=== PATIENT | female | born 1985 | race Caucasian/White ===

== ENCOUNTER 2016-04-03 02:20 | Emergency (ER) | payer MEDICAID | END 2016-04-03 03:17 | disposition home or self-care (01) | LOC: D.ER 02:20 | DX: S80.211A Abrasion, right knee, initial encounter (principal); W19.XXXA Unspecified fall, initial encounter; Y93.89 Activity, other specified; Y92.019 Unspecified place in single-family (private) house as the place of occurrence of the external cause; J45.909 Unspecified asthma, uncomplicated ==

== ENCOUNTER 2016-09-28 11:58 | Emergency (ER) | payer MEDICAID | END 2016-09-28 13:00 | disposition left against medical advice (07) | LOC: D.ER 11:58 | DX: M79.642 Pain in left hand (principal) ==

== ENCOUNTER 2016-11-09 12:16 | Emergency (ER) | payer MEDICAID ==
[2016-11-09 13:16] LABS: BASOPHILS 0.4 % (0-2); EOSINOPHILS 1.9 % (0-7); HEMATOCRIT 45.8 % (36.0-48.0); IMMATURE GRANULOCYTES 0.1 % (0-5); MCH 30.1 pg (26.0-34.0); MCHC 32.8 g/dL (31.0-37.0); MEAN PLATELET VOLUME 11.8 fL (7.4-10.4); MONOCYTES 3.9 % (2-11); NEUTROPHILS 69.7 % (40-80); PLATELET COUNT 185 10x3/uL (130-400); RBC 4.98 10x6/uL (4.00-5.40); RDW 12.4 % (11.5-14.5); WBC 9.2 10x3/uL (4.8-10.8)
[2016-11-09 13:30] LABS: HCG SERUM NEGATIVE (NEGATIVE)
[2016-11-09 14:49] LABS: APPEARANCE CLEAR (CLEAR); BILIRUBIN NEGATIVE (NEGATIVE); COLOR YELLOW (YELLOW); GLUCOSE NEGATIVE (NEGATIVE); KETONE NEGATIVE (NEGATIVE); NITRITE NEGATIVE (NEGATIVE); PROTEIN TRACE mg/dL (NEGATIVE); UROBILINOGEN NORMAL (NORMAL)
[2016-11-09 14:50] LABS: BACTERIA FEW /hpf (NONE SEEN); EPITHELIAL CELLS 0-5 /hpf (0-5); RED CELLS - URINE 0-5 /hpf (0-5); WHITE CELLS - URINE 0-5 /hpf (0-5)
[2016-11-09 16:16] LABS: ALBUMIN 3.8 g/dL (3.4-5.0); ALKALINE PHOSPHATASE 63 U/L (46-116); ALT (SGPT) 21 U/L (10-68); CALC OSMOLALITY 275 mosm/kg (275-300); CARBON DIOXIDE 28.2 mmol/L (21.0-32.0); CHLORIDE - SERUM 104 mmol/L (98-107); CREATININE - SERUM 0.8 mg/dL (0.6-1.3); GLUCOSE 95 mg/dL (74-106); POTASSIUM - SERUM 4.3 mmol/L (3.5-5.1); PROTEIN - SERUM 7.5 g/dL (6.4-8.2); SODIUM 138 mmol/L (136-145); UREA NITROGEN 12 mg/dL (7-18); eGFR NON AFRICAN AMERICAN 89 mL/min (90-120)
[2017-01-27] MEDS ORDERED: PROVENTIL HFA6.7 GM INH (15:24)
[2017-01-28 07:57] VITALS: BMI 31.0
== END 2016-11-09 18:21 | disposition home or self-care (01) ==
LOC: D.ER 12:16
PROVIDERS: Family Medicine; Nurse Practitioner Family
DX: K80.50 Calculus of bile duct without cholangitis or cholecystitis without obstruction (principal); N39.0 Urinary tract infection, site not specified; F17.200 Nicotine dependence, unspecified, uncomplicated

== ENCOUNTER 2016-11-26 09:01 | Emergency (ER) | payer MEDICAID ==
[2016-11-26 09:49] LABS: AMYLASE - SERUM 54 U/L (25-115); LIPASE 248 U/L (73-393)
[2016-11-26 09:54] LABS: ALBUMIN 3.4 g/dL (3.4-5.0); ALKALINE PHOSPHATASE 57 U/L (46-116); ALT (SGPT) 18 U/L (10-68); CALC OSMOLALITY 278 mosm/kg (275-300); CALCIUM 8.9 mg/dL (8.5-10.1); CARBON DIOXIDE 23.3 mmol/L (21.0-32.0); CHLORIDE - SERUM 104 mmol/L (98-107); CREATININE - SERUM 0.8 mg/dL (0.6-1.3); GLUCOSE 130 mg/dL (74-106); POTASSIUM - SERUM 4.1 mmol/L (3.5-5.1); PROTEIN - SERUM 6.9 g/dL (6.4-8.2); SODIUM 137 mmol/L (136-145); UREA NITROGEN 21 mg/dL (7-18); eGFR NON AFRICAN AMERICAN 89 mL/min (90-120)
[2016-11-26 10:00] LABS: HCG SERUM NEGATIVE (NEGATIVE)
[2016-11-26 10:24] LABS: BASOPHILS 0.2 % (0-2); EOSINOPHILS 1.6 % (0-7); HEMATOCRIT 45.1 % (36.0-48.0); HEMOGLOBIN 14.9 g/dL (12-16); IMMATURE GRANULOCYTES 0.2 % (0-5); LYMPHOCYTES 19.7 % (15-50); MCH 30.2 pg (26.0-34.0); MCV 91.3 fL (80.0-100.0); MEAN PLATELET VOLUME 12.5 fL (7.4-10.4); MONOCYTES 4.7 % (2-11); NEUTROPHILS 73.6 % (40-80); PLATELET COUNT 213 10x3/uL (130-400); RBC 4.94 10x6/uL (4.00-5.40); RDW 12.6 % (11.5-14.5); WBC 14.7 10x3/uL (4.8-10.8)
[2016-11-26 10:24] LABS: APPEARANCE CLOUDY (CLEAR); BILIRUBIN NEGATIVE (NEGATIVE); COLOR YELLOW (YELLOW); GLUCOSE NEGATIVE (NEGATIVE); KETONE NEGATIVE (NEGATIVE); NITRITE NEGATIVE (NEGATIVE); PROTEIN NEGATIVE (NEGATIVE); SPECIFIC GRAVITY 1.015 (1.005-1.020); UROBILINOGEN NORMAL (NORMAL); WHITE CELLS - URINE 0-5 /hpf (0-5)
[2016-11-26 10:27] LABS: BACTERIA MODERATE /hpf (NONE SEEN); MUCUS <1+ /lpf (NONE SEEN)
[2017-01-27] MEDS ORDERED: PROVENTIL HFA6.7 GM INH (15:24)
[2017-01-28 07:57] VITALS: BMI 31.0
== END 2016-11-26 13:30 | disposition home or self-care (01) ==
LOC: D.ER 09:01
PROVIDERS: Family Medicine
DX: K80.50 Calculus of bile duct without cholangitis or cholecystitis without obstruction (principal); N76.0 Acute vaginitis; B96.89 Other specified bacterial agents as the cause of diseases classified elsewhere; F17.200 Nicotine dependence, unspecified, uncomplicated

== ENCOUNTER 2017-01-28 06:57 | Day surgery (SDC) | payer MEDICAID ==
[~2017-01-28] VITALS: Ht 177.8 cm; Wt 98.0 kg
[~2017-01-28 06:57] MED LIST: PROVENTIL HFA6.7 GM INH
[2017-01-28 07:45] LABS: BASOPHILS 0.2 % (0-2); EOSINOPHILS 2.3 % (0-7); HEMATOCRIT 43.3 % (36.0-48.0); HEMOGLOBIN 14.3 g/dL (12-16); IMMATURE GRANULOCYTES 0.1 % (0-5); LYMPHOCYTES 20.9 % (15-50); MCH 30.3 pg (26.0-34.0); MCV 91.7 fL (80.0-100.0); MEAN PLATELET VOLUME 11.3 fL (7.4-10.4); MONOCYTES 5.6 % (2-11); NEUTROPHILS 70.9 % (40-80); PLATELET COUNT 193 10x3/uL (130-400); RBC 4.72 10x6/uL (4.00-5.40); RDW 13.1 % (11.5-14.5); WBC 8.6 10x3/uL (4.8-10.8)
[2017-01-28 07:55] LABS: CALC OSMOLALITY 275 mosm/kg (275-300); CALCIUM 8.6 mg/dL (8.5-10.1); CARBON DIOXIDE 26.4 mmol/L (21.0-32.0); CHLORIDE - SERUM 104 mmol/L (98-107); CREATININE - SERUM 0.7 mg/dL (0.6-1.3); GLUCOSE 106 mg/dL (74-106); POTASSIUM - SERUM 3.8 mmol/L (3.5-5.1); SODIUM 138 mmol/L (136-145); UREA NITROGEN 13 mg/dL (7-18); eGFR NON AFRICAN AMERICAN > 90 mL/min (90-120)
[2017-01-28 07:57] VITALS: BP 117/67; Ht 177.8 cm; Wt 98.0 kg
[2017-01-28 08:27] LABS: HCG URINE NEGATIVE (NEGATIVE)
--- NOTE | 2017-01-28 10:26 | NUR ---
RECEIVED PT FROM OR, AIRWAY IN PLACE, RE[ORT FROM Lisa ulloa.
[2017-01-28] MEDS ORDERED: HYDROCODONE-APA1 TAB PO (11:39)
--- NOTE | 2017-02-04 08:01 | OP ---
PATIENT NAME: GUS QUIROS MEDICAL RECORD: [id number] :87 LOCATION:[facility] ADMISSION DATE: SURGEON: HAWK NAIK MD DATE OF OPERATION: 01/28/2017 PREOPERATIVE DIAGNOSES: 1. Umbilical hernia. 2. Gallstones. POSTOPERATIVE DIAGNOSES: 1. Umbilical hernia. 2. Gallstones. PROCEDURES: 1. Laparoscopic cholecystectomy. 2. Umbilical hernia repair without mesh. SURGEON: Hawk Naik MD REPORT OF PROCEDURE: The patient's abdomen was prepped and draped in sterile fashion. A semicircular incision was made on the inferior aspect of the umbilicus. We then dissected down through the subcutaneous tissue using camera through the hernia sac at the umbilical stalk. The hernia sac was dissected off to the fascia. The fascial defect was less than a centimeter in greatest diameter and had some fatty tissue within it. We extended this incision superiorly, 0 Vicryls were placed on the fascia bilaterally. I bluntly entered the abdominal cavity and then placed a 12-mm Aria port. Under direct visualization, a 5-mm trocar was placed in the epigastrium and 2 more 5-mm trocars were placed in the right subcostal region. The gallbladder was grasped and elevated. There is a lot of inflammatory adhesions present on it and these were teased down carefully with blunt dissection. The cystic artery and cystic duct were dissected free and these were clipped proximally and distally and ligated in standard fashion. The gallbladder was then taken off the liver bed using electrocautery and placed in the right upper quadrant. Any bleeding from the liver bed was then treated with electrocautery. At this point, the ports and insufflation were then removed and the gallbladder was taken out through the umbilicus. The umbilical fascia was then closed with interrupted 0 Prolenes times 4 including the known hernia defect. At this point, the umbilicus was tacked down with an interrupted 3-0 Vicryl and the subcutaneous tissues were reapproximated with interrupted 3-0 Vicryls. The wounds were then infused with a total of 10 mL of 0.25% Marcaine plain. The skin incisions were then closed with subcutaneous 5-0 Monocryl. COMPLICATIONS: None. CONDITION: Stable. ANESTHESIA: General endotracheal and local. BLOOD LOSS: Minimal. TRANSINT:[id number] Voice Confirmation ID: [id number] DOCUMENT ID: [id number] OPERATIVE REPORT [id number] GUS QUIROS CHRISTIAN MD at 0801 CC: [id number] DICTATION DATE: 01/28/17 1013 [employer] TEACHER: 01/28/17 1039 [facility] 01/28/17 [place] [id number] [place] [id number]
== END 2017-01-28 12:20 | disposition home or self-care (01) ==
LOC: D.OPS 06:57 → D.PAN 09:00 → D.OPS 09:00
PROVIDERS: Anesthesiology; Surgery
DX: K42.9 Umbilical hernia without obstruction or gangrene (principal); K80.80 Other cholelithiasis without obstruction; F17.200 Nicotine dependence, unspecified, uncomplicated; K21.9 Gastro-esophageal reflux disease without esophagitis; Z01.812 Encounter for preprocedural laboratory examination

== ENCOUNTER 2017-01-29 14:02 | Emergency (ER) | payer MEDICAID ==
[2017-01-28 07:57] VITALS: BMI 31.0
[~2017-01-29 14:02] MED LIST changes: +HYDROCODONE-APA1 TAB PO
== END 2017-01-29 15:50 | disposition home or self-care (01) ==
LOC: D.ER 14:02
DX: G89.18 Other acute postprocedural pain (principal); F17.200 Nicotine dependence, unspecified, uncomplicated

== ENCOUNTER 2017-02-07 21:57 | Emergency (ER) | payer MEDICAID ==
[2017-01-28 07:57] VITALS: BMI 31.0
== END 2017-02-07 23:10 | disposition home or self-care (01) ==
LOC: D.ER 21:57
DX: S83.92XA Sprain of unspecified site of left knee, initial encounter (principal); W19.XXXA Unspecified fall, initial encounter; Y93.89 Activity, other specified; Y92.019 Unspecified place in single-family (private) house as the place of occurrence of the external cause; F17.200 Nicotine dependence, unspecified, uncomplicated

== ENCOUNTER 2017-05-27 12:14 | Emergency (ER) | payer MEDICAID ==
[2017-01-28 07:57] VITALS: BMI 31.0
== END 2017-05-27 14:00 | disposition home or self-care (01) ==
LOC: D.ER 12:14
DX: S39.012A Strain of muscle, fascia and tendon of lower back, initial encounter (principal); X50.0XXA Overexertion from strenuous movement or load, initial encounter; Y93.89 Activity, other specified; Y92.019 Unspecified place in single-family (private) house as the place of occurrence of the external cause; M54.31 Sciatica, right side

== ENCOUNTER 2017-06-11 08:57 | Emergency (ER) | payer MEDICAID ==
[2017-01-28 07:57] VITALS: BMI 31.0
[2017-06-11 09:36] LABS: BASOPHILS 0.2 % (0-2); EOSINOPHILS 2.2 % (0-7); HEMATOCRIT 44.3 % (36.0-48.0); IMMATURE GRANULOCYTES 0.2 % (0-5); LYMPHOCYTES 23.9 % (15-50); MCH 31.7 pg (26.0-34.0); MCHC 33.9 g/dL (31.0-37.0); MCV 93.7 fL (80.0-100.0); MEAN PLATELET VOLUME 11.6 fL (7.4-10.4); MONOCYTES 5.3 % (2-11); NEUTROPHILS 68.2 % (40-80); PLATELET COUNT 220 10x3/uL (130-400); RBC 4.73 10x6/uL (4.00-5.40); RDW 12.9 % (11.5-14.5); WBC 9.1 10x3/uL (4.8-10.8)
[2017-06-11 09:47] LABS: HCG SERUM POSITIVE (NEGATIVE)
== END 2017-06-11 12:35 | disposition home or self-care (01) ==
LOC: D.ER 08:57
PROVIDERS: Emergency Medicine
DX: O03.9 Complete or unspecified spontaneous abortion without complication (principal); F17.200 Nicotine dependence, unspecified, uncomplicated

== ENCOUNTER 2017-08-08 05:25 | Emergency (ER) | payer MEDICAID ==
[~2017-08-08] VITALS: Ht 177.8 cm; Wt 75.5 kg
[2017-08-08 05:31] VITALS: Ht 177.8 cm; Wt 75.5 kg
[2017-08-08] MEDS ORDERED: KEFLEX500 MG PO (06:35)
[2017-08-08 07:16] VITALS: BP 120/69
== END 2017-08-08 07:17 | disposition home or self-care (01) ==
LOC: D.ER 05:25
DX: S91.101A Unspecified open wound of right great toe without damage to nail, initial encounter (principal); W26.8XXA Contact with other sharp object(s), not elsewhere classified, initial encounter; Y93.89 Activity, other specified; Y92.019 Unspecified place in single-family (private) house as the place of occurrence of the external cause; F17.200 Nicotine dependence, unspecified, uncomplicated

== ENCOUNTER 2017-08-21 14:56 | Emergency (ER) | payer MEDICAID ==
[2017-08-08 05:31] VITALS: BMI 23.8
[~2017-08-21 14:56] MED LIST changes: +KEFLEX500 MG PO
== END 2017-08-21 15:31 | disposition left against medical advice (07) ==
LOC: D.ER 14:56
DX: K64.9 Unspecified hemorrhoids (principal)

== ENCOUNTER 2018-07-25 12:12 | Emergency (ER) | payer SELFPAY ==
[~2018-07-25] VITALS: Ht 177.8 cm; Wt 104.5 kg
[2018-07-25 12:26] VITALS: BP 117/87; Ht 177.8 cm; Wt 104.5 kg
[2018-07-25 13:14] LABS: BASOPHILS 0.3 % (0-2); HEMATOCRIT 41.7 % (36.0-48.0); HEMOGLOBIN 13.5 g/dL (12-16); IMMATURE GRANULOCYTES 0.3 % (0-5); LYMPHOCYTES 27.7 % (15-50); MCH 30.9 pg (26.0-34.0); MCHC 32.4 g/dL (31.0-37.0); MCV 95.4 fL (80.0-100.0); MEAN PLATELET VOLUME 11.6 fL (7.4-10.4); MONOCYTES 5.7 % (2-11); RBC 4.37 10x6/uL (4.00-5.40); RDW 12.9 % (11.5-14.5); WBC 7.7 10x3/uL (4.8-10.8)
[2018-07-25 13:29] LABS: APTT 26.2 SECONDS (22.8-39.4); PROTIME 12.7 SECONDS (11.6-15.0)
[2018-07-25 13:31] LABS: ALBUMIN 3.9 g/dL (3.4-5.0); ALKALINE PHOSPHATASE 83 U/L (46-116); ALT (SGPT) 32 U/L (10-68); BILIRUBIN - TOTAL 0.25 mg/dL (0.2-1.3); CALC OSMOLALITY 277 mosm/kg (275-300); CARBON DIOXIDE 29.7 mmol/L (21.0-32.0); CHLORIDE - SERUM 102 mmol/L (98-107); CREATININE - SERUM 0.6 mg/dL (0.6-1.3); GLUCOSE 85 mg/dL (74-106); POTASSIUM - SERUM 4.2 mmol/L (3.5-5.1); PROTEIN - SERUM 7.6 g/dL (6.4-8.2); SODIUM 139 mmol/L (136-145); UREA NITROGEN 15 mg/dL (7-18); eGFR NON AFRICAN AMERICAN > 90 mL/min (90-120)
[2018-07-25 13:34] LABS: PLATELET COUNT 172 10x3/uL (130-400)
[2018-07-25] MEDS ORDERED: IBUPROFEN800 MG PO (14:44)
[2018-07-25] MEDS ORDERED: CYCLOBENZAPRINE10 MG PO (14:44)
[2018-07-25] MEDS ORDERED: ACETAMINOPHEN500 M1 PO (14:44)
[2018-07-25 14:50] LABS: APPEARANCE CLEAR (CLEAR); BILIRUBIN NEGATIVE (NEGATIVE); COLOR YELLOW (YELLOW); GLUCOSE NEGATIVE (NEGATIVE); HCG URINE NEGATIVE (NEGATIVE); KETONE NEGATIVE (NEGATIVE); NITRITE NEGATIVE (NEGATIVE); PROTEIN NEGATIVE (NEGATIVE); UROBILINOGEN NORMAL (NORMAL)
== END 2018-07-25 15:20 | disposition home or self-care (01) ==
LOC: D.ER 12:12
PROVIDERS: Family Medicine
DX: S00.83XA Contusion of other part of head, initial encounter (principal); V86.59XA Driver of other special all-terrain or other off-road motor vehicle injured in nontraffic accident, initial encounter; Y93.89 Activity, other specified; Y92.89 Other specified places as the place of occurrence of the external cause; M79.18 Myalgia, other site

== ENCOUNTER 2018-10-20 06:33 | Emergency (ER) | payer MEDICAID ==
[~2018-10-20] VITALS: Ht 177.8 cm; Wt 75.0 kg
[~2018-10-20 06:33] MED LIST changes: +ACETAMINOPHEN500 M1 PO; +CYCLOBENZAPRINE10 MG PO; +IBUPROFEN800 MG PO
[2018-10-20 06:37] VITALS: Ht 177.8 cm; Wt 75.0 kg
[2018-10-20] MEDS ORDERED: ABX (06:40)
[2018-10-20] MEDS ORDERED: CHANTIX 1 MG TAB1 MG PO (06:41)
[2018-10-20] MEDS ORDERED: STEROIDS (06:41)
[2018-10-20 07:52] LABS: ALBUMIN 3.6 g/dL (3.4-5.0); ALKALINE PHOSPHATASE 72 U/L (46-116); ALT (SGPT) 23 U/L (10-68); BASOPHILS 0.3 % (0-2); BILIRUBIN - TOTAL 0.26 mg/dL (0.2-1.3); C-REACTIVE PROTEIN < 0.2 mg/dL (0.0-0.9); CALC OSMOLALITY 278 mosm/kg (275-300); CALCIUM 8.4 mg/dL (8.5-10.1); CARBON DIOXIDE 25.4 mmol/L (21.0-32.0); CHLORIDE - SERUM 104 mmol/L (98-107); CREATININE - SERUM 0.9 mg/dL (0.6-1.3); EOSINOPHILS 0.9 % (0-7); GLUCOSE 114 mg/dL (74-106); HEMATOCRIT 43.3 % (36.0-48.0); HEMOGLOBIN 14.2 g/dL (12-16); IMMATURE GRANULOCYTES 0.5 % (0-5); LYMPHOCYTES 15.9 % (15-50); MCH 30.8 pg (26.0-34.0); MCHC 32.8 g/dL (31.0-37.0); MCV 93.9 fL (80.0-100.0); MEAN PLATELET VOLUME 10.9 fL (7.4-10.4); MONOCYTES 4.7 % (2-11); NEUTROPHILS 77.7 % (40-80); PLATELET COUNT 228 10x3/uL (130-400); POTASSIUM - SERUM 4.1 mmol/L (3.5-5.1); PROTEIN - SERUM 6.9 g/dL (6.4-8.2); RBC 4.61 10x6/uL (4.00-5.40); RDW 12.5 % (11.5-14.5); SODIUM 138 mmol/L (136-145); UREA NITROGEN 19 mg/dL (7-18); WBC 13.7 10x3/uL (4.8-10.8); eGFR NON AFRICAN AMERICAN 77 mL/min (90-120)
[2018-10-20 09:11] LABS: ERYTHROCYTE SEDIMENTATION RATE 3 mm/hr (0-20)
[2018-10-20] MEDS ORDERED: CYCLOBENZAPRINE10 MG PO (10:29)
[2018-10-20] MEDS ORDERED: IBUPROFEN800 MG PO (10:29)
[2018-10-20] MEDS ORDERED: ACETAMINOPHEN500 M1 PO (10:29)
[2018-10-20 10:30] VITALS: BP 128/76
== END 2018-10-20 10:45 | disposition home or self-care (01) ==
LOC: D.ER 06:33
PROVIDERS: Family Medicine
DX: M25.561 Pain in right knee (principal); M25.562 Pain in left knee

== ENCOUNTER 2019-04-22 13:43 | Emergency (ER) | payer MEDICAID ==
[~2019-04-22 13:43] MED LIST changes: +ABX; +CHANTIX 1 MG TAB1 MG PO; +STEROIDS
[2019-04-22 13:48] VITALS: Ht 177.8 cm
[2019-04-22 14:43] LABS: BASOPHILS 0.2 % (0-2); EOSINOPHILS 3.1 % (0-7); HEMATOCRIT 35.1 % (36.0-48.0); HEMOGLOBIN 11.3 g/dL (12-16); IMMATURE GRANULOCYTES 0.1 % (0-5); LYMPHOCYTES 18.8 % (15-50); MCH 30.5 pg (26.0-34.0); MCHC 32.2 g/dL (31.0-37.0); MCV 94.6 fL (80.0-100.0); MEAN PLATELET VOLUME 11.1 fL (7.4-10.4); MONOCYTES 5.9 % (2-11); NEUTROPHILS 71.9 % (40-80); PLATELET COUNT 230 10x3/uL (130-400); RBC 3.71 10x6/uL (4.00-5.40); RDW 12.2 % (11.5-14.5); WBC 8.7 10x3/uL (4.8-10.8)
[2019-04-22 14:50] LABS: BACTERIA FEW /hpf (NEGATIVE); BILIRUBIN NEGATIVE (NEGATIVE); EPITHELIAL CELLS OCC /hpf (0-5); GLUCOSE NEGATIVE (NEGATIVE); KETONE NEGATIVE (NEGATIVE); NITRITE NEGATIVE (NEGATIVE); RED CELLS - URINE 25-50 /hpf (0-5); SPECIFIC GRAVITY 1.025 (1.005-1.020); UROBILINOGEN NORMAL (NORMAL); WHITE CELLS - URINE 0-5 /hpf (NEGATIVE)
[2019-04-22 14:55] LABS: HCG URINE NEGATIVE (NEGATIVE)
[2019-04-22 15:17] LABS: CALC OSMOLALITY 281 mosm/kg (275-300); CALCIUM 8.5 mg/dL (8.5-10.1); CHLORIDE - SERUM 106 mmol/L (98-107); CREATININE - SERUM 0.7 mg/dL (0.6-1.3); GLUCOSE 101 mg/dL (74-106); POTASSIUM - SERUM 3.6 mmol/L (3.5-5.1); SODIUM 142 mmol/L (136-145); UREA NITROGEN 11 mg/dL (7-18); eGFR NON AFRICAN AMERICAN > 90 mL/min (90-120)
[2019-04-22 15:24] LABS: ALBUMIN 2.7 g/dL (3.4-5.0); ALKALINE PHOSPHATASE 76 U/L (30-120); ALT (SGPT) 18 U/L (10-68); AMYLASE - SERUM 26 U/L (25-115); BILIRUBIN - TOTAL 0.26 mg/dL (0.2-1.3); LIPASE 97 U/L (73-393); PROTEIN - SERUM 5.8 g/dL (6.4-8.2)
[2019-04-22 15:35] LABS: TROPONIN-I < 0.017 ng/mL (0.000-0.060)
[2019-04-22] MEDS ORDERED: KEFLEX500 MG PO (16:11)
[2019-04-22] MEDS ORDERED: MEDROL DOSE PACK4 MG PO (16:11)
[2019-04-22] MEDS ORDERED: IBUPROFEN800 MG PO (16:14)
[2019-04-22] MEDS ORDERED: ACETAMINOPHEN500 M1 PO (16:14)
[2019-04-22] MEDS ORDERED: MACROBID100 MG PO (16:14)
[2019-04-22 17:07] VITALS: BP 144/82
== END 2019-04-22 17:10 | disposition home or self-care (01) ==
LOC: D.ER 13:43
PROVIDERS: Family Medicine
DX: G89.18 Other acute postprocedural pain (principal); N39.0 Urinary tract infection, site not specified; R10.9 Unspecified abdominal pain

== ENCOUNTER 2019-09-01 10:12 | Emergency (ER) | payer MEDICAID ==
[~2019-09-01] VITALS: Ht 177.8 cm; Wt 106.8 kg
[~2019-09-01 10:12] MED LIST changes: +MACROBID100 MG PO; +MEDROL DOSE PACK4 MG PO
[2019-09-01 10:23] VITALS: Ht 177.8 cm; Wt 106.8 kg
[2019-09-01 11:02] LABS: BILIRUBIN NEGATIVE (NEGATIVE); GLUCOSE NEGATIVE (NEGATIVE); KETONE NEGATIVE (NEGATIVE); NITRITE NEGATIVE (NEGATIVE); UROBILINOGEN NORMAL (NORMAL)
[2019-09-01 11:14] LABS: BACTERIA FEW /hpf (NEGATIVE); EPITHELIAL CELLS 0-5 /hpf (0-5); RED CELLS - URINE 25-50 /hpf (0-5); WHITE CELLS - URINE 0-5 /hpf (NEGATIVE)
[2019-09-01 11:21] LABS: BASOPHILS 0.2 % (0-2); EOSINOPHILS 1.7 % (0-7); HEMATOCRIT 44.2 % (36.0-48.0); HEMOGLOBIN 14.3 g/dL (12-16); IMMATURE GRANULOCYTES 0.2 % (0-5); LYMPHOCYTES 19.3 % (15-50); MCH 30.9 pg (26.0-34.0); MCHC 32.4 g/dL (31.0-37.0); MCV 95.5 fL (80.0-100.0); MEAN PLATELET VOLUME 10.9 fL (7.4-10.4); MONOCYTES 5.5 % (2-11); NEUTROPHILS 73.1 % (40-80); PLATELET COUNT 238 10x3/uL (130-400); RBC 4.63 10x6/uL (4.00-5.40); RDW 13.3 % (11.5-14.5); WBC 12.1 10x3/uL (4.8-10.8)
[2019-09-01 11:29] LABS: CALC OSMOLALITY 272 mosm/kg (275-300); CALCIUM 9.1 mg/dL (8.5-10.1); CARBON DIOXIDE 28.2 mmol/L (21.0-32.0); CHLORIDE - SERUM 102 mmol/L (98-107); CREATININE - SERUM 0.8 mg/dL (0.6-1.3); GLUCOSE 131 mg/dL (74-106); POTASSIUM - SERUM 4.4 mmol/L (3.5-5.1); SODIUM 135 mmol/L (136-145); UREA NITROGEN 15 mg/dL (7-18); eGFR NON AFRICAN AMERICAN 88 mL/min (90-120)
[2019-09-01 11:35] LABS: ALBUMIN 3.9 g/dL (3.4-5.0); ALKALINE PHOSPHATASE 85 U/L (30-120); ALT (SGPT) 33 U/L (10-68); BILIRUBIN - TOTAL 0.43 mg/dL (0.2-1.3)
[2019-09-01 11:44] LABS: INR 0.9 (0.85-1.17); PROTIME 12.1 SECONDS (11.6-15.0)
[2019-09-01] MEDS ORDERED: HYDROCORTISONE30 G9 TOPICAL (11:55)
[2019-09-01 12:38] VITALS: BP 119/69
== END 2019-09-01 12:38 | disposition home or self-care (01) ==
LOC: D.ER 10:12
PROVIDERS: Emergency Medicine
DX: K64.8 Other hemorrhoids (principal); K64.4 Residual hemorrhoidal skin tags; D72.829 Elevated white blood cell count, unspecified; K62.5 Hemorrhage of anus and rectum